=== PATIENT | female | born 1960 | race African-American/Black ===

== ENCOUNTER → 2021-08-09 | Day surgery (SDC) | payer MEDICARE, MEDICAID ==
[~2021-08-09] MED LIST: AMLO-187 PO; CHOL10004 PO; EPIN0.3A3 IJ; IPRATRPIUM/ALBUTEROL 0.5/2.5MG 3 ML NEBU. NEB PRN; IV RINGERS SOLUTION,LACTATED 1,000 ML IV SCH; LIDOCAINE 2% PF 5 ML VIAL. ONE; METF500T16 PO; MIDAZOLAM HCL PF 2 MG/2 ML VIAL. IV ONE; NYST15CR2 TP; ONDANSETRON PF 4 MG/2 ML VIAL. IV PRN; PRAV40TA2 PO; PROG100C10 PO; PROPOFOL 10,000 MCG/ML (20ML) VIAL IV ONE
[2021-08-09 14:32] VITALS: BP 105/75
== END | disposition home or self-care (01) ==
LOC: SURG 12:08
PROVIDERS: ATTEND Family Medicine
DX: R19.5 Other fecal abnormalities (principal); D12.3 Benign neoplasm of transverse colon; M19.90 Unspecified osteoarthritis, unspecified site; I10 Essential (primary) hypertension; F41.9 Anxiety disorder, unspecified; E11.9 Type 2 diabetes mellitus without complications; E78.49 Other hyperlipidemia; Z88.8 Allergy status to other drugs, medicaments and biological substances; Z80.0 Family history of malignant neoplasm of digestive organs; Z80.3 Family history of malignant neoplasm of breast; Z80.1 Family history of malignant neoplasm of trachea, bronchus and lung; Z87.891 Personal history of nicotine dependence; Z72.89 Other problems related to lifestyle; Z79.84 Long term (current) use of oral hypoglycemic drugs
CPT/HCPCS: 45385; 82947; J2001; J2704; J7120